=== PATIENT | female | born 1945 | race African-American/Black ===

== ENCOUNTER 2016-05-05 05:25 | Day surgery (SDC) | payer OTHER ==
[~2016-05-05] VITALS: Ht 167.6 cm; Wt 79.4 kg
[~2016-05-05 05:25] MED LIST: CATAPRES0.1 MG PO; HYDROCHLOROTHIA25 MG PO; NORVASC10 MG PO; PROTONIX40 MG PO; TYLENOL REGULA325 MG PO; VENTOLIN HFA18 GM IH; ZYLOPRIM100 MG PO
[2016-05-05 06:38] VITALS: BP 142/80
[2016-05-05 06:40] LABS: HEMATOCRIT 32.1 % (36.0-46.0); MCH 30.1 PG (29.0-34.0); MCHC 31.5 G/DL (30.0-36.0); MCV 95.8 FL (83-99); MEAN PLAT.VOLUME 10.5 uM^3 (9.5-12.4); PLATELET COUNT 224 K/uL (156-360); RBC DIS.WIDTH-CV 12.8 % (11.8-14.6); RBC DIS.WIDTH-SD 44.4 % (39-53); RED BLOOD COUNT 3.35 M/uL (3.80-5.20); WHITE BLOOD COUNT 6.7 K/uL (4.1-10.2)
[2016-05-05 07:06] LABS: ANION GAP 16 MEQ/L (2-14); CHLORIDE 91 MEQ/L (99-109); POTASSIUM 4.6 MEQ/L (3.7-5.4); SAMPLE HEMOLYSIS CHECK 0; SAMPLE ICTERIC CHECK 0; SAMPLE LIPEMIA CHECK 0; SODIUM 140 MEQ/L (136-147)
[2016-05-05 07:12] LABS: GFR ESTIMATE (CALCULATED) 6 mL/min/; GLUCOSE 136 mg/dL (70-99); UREA NITROGEN (BUN) 45 mg/dL (9-23)
[2016-05-05 07:49] LABS: METH RESISTANT S AUREUS PCR NEGATIVE (NEGATIVE)
[2016-05-05 07:50] LABS: PROBE CHECK PASS; SPECIMEN PROCESSING CONTROL PASS
[2016-05-05] MEDS ORDERED: NORCO 5/3251 TABLET PO (09:06)
[2016-05-05 09:33] VITALS: BP 141/71
[2016-05-05 10:30] VITALS: BP 140/81
== END 2016-05-05 10:37 | disposition home or self-care (01) ==
LOC: SDC 05:25
PROVIDERS: Surgery
DX: T82.858A Stenosis of other vascular prosthetic devices, implants and grafts, initial encounter (principal); Y83.2 Surgical operation with anastomosis, bypass or graft as the cause of abnormal reaction of the patient, or of later complication, without mention of misadventure at the time of the procedure; I12.0 Hypertensive chronic kidney disease with stage 5 chronic kidney disease or end stage renal disease; N18.6 End stage renal disease; Z99.2 Dependence on renal dialysis; M19.90 Unspecified osteoarthritis, unspecified site; E66.3 Overweight; Z68.28 Body mass index [BMI] 28.0-28.9, adult
CPT/HCPCS: 80048; 85027; 87641; 93005; C1725; C1769; C1894; J0690; J1644; J2250; J2405; J3010

== ENCOUNTER 2016-12-30 19:49 | Emergency (ER) | payer OTHER ==
[~2016-12-30] VITALS: Ht 167.6 cm; Wt 80.1 kg
[~2016-12-30 19:49] MED LIST changes: +NORCO 5/3251 TABLET PO
[2016-12-30 20:51] LABS: MCH 30.7 PG (29.0-34.0); MCHC 32.9 G/DL (30.0-36.0); MCV 93.4 FL (83-99); MEAN PLAT.VOLUME 10.5 uM^3 (9.5-12.4); PLATELET COUNT 233 K/uL (156-360); RBC DIS.WIDTH-CV 13.2 % (11.8-14.6); RBC DIS.WIDTH-SD 45.1 % (39-53); RED BLOOD COUNT 3.32 M/uL (3.80-5.20); WHITE BLOOD COUNT 6.9 K/uL (4.1-10.2)
[2016-12-30 21:02] LABS: CHLORIDE 93 mEq/L (99-109)
[2016-12-30 21:03] LABS: SODIUM 143 mEq/L (136-147)
[2016-12-30 21:05] LABS: GLUCOSE 135 mg/dL (70-99)
[2016-12-30 21:06] LABS: ANION GAP 17 MEQ/L (2-14)
[2016-12-30 21:07] LABS: TOTAL BILIRUBIN 0.5 mg/dL (0.0-1.0)
[2016-12-30 21:08] LABS: ALKALINE PHOSPHATASE 102 IU/L (3-129); GFR ESTIMATE (CALCULATED) 8 mL/min/
[2016-12-30 21:10] LABS: UREA NITROGEN (BUN) 15 mg/dL (9-23)
[2016-12-30 21:56] LABS: TROP-I INTERPRETATION NEGATIVE; TROPONIN-I < 0.01 ng/mL (0.0-0.30)
[2016-12-30 23:03] LABS: INFLUENZA A VIRAL ANTIGEN NEGATIVE; INFLUENZA B VIRAL ANTIGEN NEGATIVE
[2016-12-31 00:38] VITALS: BP 207/105
== END 2016-12-31 00:39 | disposition left against medical advice (07) ==
LOC: EME 19:49
PROVIDERS: Emergency Medicine
DX: R07.9 Chest pain, unspecified (principal); R06.02 Shortness of breath; M79.601 Pain in right arm; M25.511 Pain in right shoulder; R10.9 Unspecified abdominal pain; R11.10 Vomiting, unspecified; N20.0 Calculus of kidney; I12.0 Hypertensive chronic kidney disease with stage 5 chronic kidney disease or end stage renal disease; N18.6 End stage renal disease; Z90.710 Acquired absence of both cervix and uterus; Z87.891 Personal history of nicotine dependence; Z53.29 Procedure and treatment not carried out because of patient's decision for other reasons
CPT/HCPCS: 71020; 74176; 80053; 81003; 83605; 83880; 84484; 85027; 87040; 87502; 93005; 99281; 99285

== ENCOUNTER 2017-01-05 06:46 | Emergency (ER) | payer OTHER ==
[~2017-01-05] VITALS: Ht 162.6 cm; Wt 80.1 kg
[2017-01-05 07:27] LABS: EOSINOPHIL (%) 4.3 % (0-5); EOSINOPHIL COUNT 0.3 K/uL (0-0.3); HEMATOCRIT 30.1 % (36.0-46.0); IMMATURE GRANULOCYTE (%) 0.3 % (0.0-0.7); INSTRUMENT ABS NEUTROPHIL CT 3.6 K/uL; LYMPHOCYTE COUNT 1.6 K/uL (1.0-2.8); MCH 30.4 PG (29.0-34.0); MCHC 32.2 G/DL (30.0-36.0); MCV 94.4 FL (83-99); MEAN PLAT.VOLUME 10.5 uM^3 (9.5-12.4); MONOCYTE (%) 7.7 % (3-12); MONOCYTE COUNT 0.5 K/uL (0-0.8); NEUTROPHIL (%) 60.2 % (45-76); NEUTROPHIL COUNT 3.6 K/uL (1.8-6.4); PLATELET COUNT 213 K/uL (156-360); RBC DIS.WIDTH-CV 13.5 % (11.8-14.6); RED BLOOD COUNT 3.19 M/uL (3.80-5.20)
[2017-01-05 07:34] LABS: PROTHROMBIN TIME 11.1 SEC (10.2-12.9)
[2017-01-05 07:36] LABS: PTT 26.6 SEC (25-37)
[2017-01-05 07:55] LABS: ANION GAP 13 MEQ/L (2-14); CHLORIDE 94 MEQ/L (99-109); GFR ESTIMATE (CALCULATED) 8 mL/min/; GLUCOSE 111 mg/dL (70-99); POTASSIUM 3.6 MEQ/L (3.7-5.4); SAMPLE HEMOLYSIS CHECK 0; SAMPLE ICTERIC CHECK 0; SAMPLE LIPEMIA CHECK 0; SODIUM 143 MEQ/L (136-147); UREA NITROGEN (BUN) 19 mg/dL (9-23)
[2017-01-05 07:58] LABS: TROP-I INTERPRETATION NEGATIVE; TROPONIN-I < 0.01 ng/mL (0.0-0.30)
[2017-01-05 09:16] VITALS: BP 192/94
== END 2017-01-05 09:17 | disposition home or self-care (01) ==
LOC: EME 06:46
PROVIDERS: Emergency Medicine
DX: J40 Bronchitis, not specified as acute or chronic (principal); I12.0 Hypertensive chronic kidney disease with stage 5 chronic kidney disease or end stage renal disease; N18.6 End stage renal disease; Z99.2 Dependence on renal dialysis; Z87.891 Personal history of nicotine dependence
CPT/HCPCS: 71020; 80048; 84484; 85025; 85610; 85730; 93005; 99281; 99284

== ENCOUNTER 2017-01-11 02:07 | Observation (INO) | payer OTHER ==
[~2017-01-11] VITALS: Ht 167.6 cm; Wt 89.1 kg
[2017-01-11 02:32] LABS: MCH 29.9 PG (29.0-34.0); MCHC 31.7 G/DL (30.0-36.0); MCV 94.3 FL (83-99); MEAN PLAT.VOLUME 9.9 uM^3 (9.5-12.4); PLATELET COUNT 227 K/uL (156-360); RBC DIS.WIDTH-CV 13.8 % (11.8-14.6); RED BLOOD COUNT 3.18 M/uL (3.80-5.20); WHITE BLOOD COUNT 7.3 K/uL (4.1-10.2)
[2017-01-11 02:51] LABS: CHLORIDE 94 mEq/L (99-109); POTASSIUM 3.7 mEq/L (3.7-5.4); SODIUM 143 mEq/L (136-147)
[2017-01-11 02:53] LABS: GLUCOSE 124 mg/dL (70-99)
[2017-01-11 02:54] LABS: ANION GAP 12 MEQ/L (2-14)
[2017-01-11 02:57] LABS: GFR ESTIMATE (CALCULATED) 11 mL/min/
[2017-01-11 02:58] LABS: UREA NITROGEN (BUN) 12 mg/dL (9-23)
[2017-01-11 03:48] LABS: TOTAL BILIRUBIN 0.6 mg/dL (0.0-1.0)
[2017-01-11 03:49] LABS: ALKALINE PHOSPHATASE 115 IU/L (3-129)
[2017-01-11 03:51] LABS: DIRECT BILIRUBIN 0.3 mg/dL (0.0-0.3)
[2017-01-11 03:52] LABS: LIPASE 41 U/L (1.0-51.0)
[2017-01-11 03:58] LABS: TROP-I INTERPRETATION NEGATIVE; TROPONIN-I < 0.01 ng/mL (0.0-0.30)
[2017-01-11] MEDS ORDERED: LISINOPRIL20 MG PO (06:27)
[2017-01-11] MEDS ORDERED: LOSARTAN POTASS50 MG PO (06:28)
[2017-01-11] MEDS ORDERED: APRESOLINE25 MG PO (06:28)
[2017-01-11] MEDS ORDERED: LORATADINE10 M2 PO (10:02)
[2017-01-11] MEDS ORDERED: SENSIPAR30 MG PO ×2 (10:02→11:21)
[2017-01-11] MEDS ORDERED: GABAPENTIN100 MG PO (11:23)
[2017-01-11 12:47] LABS: TROP-I INTERPRETATION NEGATIVE; TROPONIN-I < 0.01 ng/mL (0.0-0.30)
[2017-01-11 13:50] VITALS: BP 200/93
[2017-01-11 15:59] VITALS: BP 187/92
[2017-01-11 18:31] LABS: TROP-I INTERPRETATION NEGATIVE; TROPONIN-I < 0.01 ng/mL (0.0-0.30)
[2017-01-11 19:30] VITALS: BP 187/98
[2017-01-12 00:34] VITALS: BP 158/90
[2017-01-12 03:34] VITALS: BP 145/74
[2017-01-12 05:41] LABS: HEMATOCRIT 26.9 % (36.0-46.0); MCH 30.3 PG (29.0-34.0); MCV 94.7 FL (83-99); MEAN PLAT.VOLUME 10.7 uM^3 (9.5-12.4); PLATELET COUNT 203 K/uL (156-360); RBC DIS.WIDTH-CV 14.1 % (11.8-14.6); RBC DIS.WIDTH-SD 48.9 % (39-53); RED BLOOD COUNT 2.84 M/uL (3.80-5.20); WHITE BLOOD COUNT 5.7 K/uL (4.1-10.2)
[2017-01-12 06:27] LABS: ANION GAP 11 MEQ/L (2-14); CHLORIDE 95 MEQ/L (99-109); GFR ESTIMATE (CALCULATED) 8 mL/min/; GLUCOSE 114 mg/dL (70-99); POTASSIUM 3.9 MEQ/L (3.7-5.4); SAMPLE HEMOLYSIS CHECK 0; SAMPLE ICTERIC CHECK 0; SAMPLE LIPEMIA CHECK 0; SODIUM 142 MEQ/L (136-147); UREA NITROGEN (BUN) 19 mg/dL (9-23)
[2017-01-12 07:52] VITALS: BP 148/82
[2017-01-12] MEDS ORDERED: LISINOPRIL40 MG PO (09:17)
[2017-01-12] MEDS ORDERED: APRESOLINE100 MG PO (09:17)
[2017-01-12] MEDS ORDERED: LABETALOL HCL200 MG PO (09:17)
[2017-01-12 12:24] VITALS: BP 120/78
[2017-01-12 16:41] VITALS: BP 140/82
[2017-01-12 19:15] VITALS: BP 128/74
[2017-01-13 00:27] VITALS: BP 132/74
[2017-01-13 03:51] VITALS: BP 124/72
[2017-01-13 05:45] LABS: EOSINOPHIL (%) 5.6 % (0-5); EOSINOPHIL COUNT 0.3 K/uL (0-0.3); HEMATOCRIT 25.9 % (36.0-46.0); IMMATURE GRANULOCYTE (%) 0.2 % (0.0-0.7); INSTRUMENT ABS NEUTROPHIL CT 2.6 K/uL; LYMPHOCYTE COUNT 1.9 K/uL (1.0-2.8); MCH 30.3 PG (29.0-34.0); MCHC 31.3 G/DL (30.0-36.0); MEAN PLAT.VOLUME 11.1 uM^3 (9.5-12.4); MONOCYTE (%) 10.7 % (3-12); MONOCYTE COUNT 0.6 K/uL (0-0.8); NEUTROPHIL (%) 47.8 % (45-76); NEUTROPHIL COUNT 2.6 K/uL (1.8-6.4); PLATELET COUNT 187 K/uL (156-360); RBC DIS.WIDTH-CV 14.5 % (11.8-14.6); RBC DIS.WIDTH-SD 50.9 % (39-53); RED BLOOD COUNT 2.67 M/uL (3.80-5.20); WHITE BLOOD COUNT 5.4 K/uL (4.1-10.2)
[2017-01-13 06:16] LABS: ANION GAP 10 MEQ/L (2-14); CHLORIDE 99 MEQ/L (99-109); GFR ESTIMATE (CALCULATED) 9 mL/min/; GLUCOSE 95 mg/dL (70-99); POTASSIUM 5.1 MEQ/L (3.7-5.4); SAMPLE HEMOLYSIS CHECK 1; SAMPLE ICTERIC CHECK 0; SAMPLE LIPEMIA CHECK 0; SODIUM 140 MEQ/L (136-147); UREA NITROGEN (BUN) 14 mg/dL (9-23)
[2017-01-13 07:27] VITALS: BP 142/78
[2017-01-13 10:25] LABS: HBSG INDEX 0.19
[2017-01-13 11:24] VITALS: BP 120/65
== END 2017-01-13 18:25 | disposition home or self-care (01) ==
LOC: EME 02:07 → ENRESERV 08:42 → EDOF 08:55 → CANRESERV 09:20 → ENRESERV 09:20 → 4EAST 13:41
PROVIDERS: Internal Medicine; Internal Medicine Nephrology; Student in an Organized Health Care Education/Training Program
PROC: 5A1D70Z Performance of Urinary Filtration, Intermittent, Less than 6 Hours Per Day (ICD-10-PCS; principal; 2017-01-12)
DX: I12.0 Hypertensive chronic kidney disease with stage 5 chronic kidney disease or end stage renal disease (principal); N18.6 End stage renal disease; I16.0 Hypertensive urgency; R07.9 Chest pain, unspecified; R06.02 Shortness of breath; D63.1 Anemia in chronic kidney disease; Z99.2 Dependence on renal dialysis; N25.81 Secondary hyperparathyroidism of renal origin; I51.7 Cardiomegaly; M19.90 Unspecified osteoarthritis, unspecified site; M10.9 Gout, unspecified; F29 Unspecified psychosis not due to a substance or known physiological condition; E87.5 Hyperkalemia; Z88.5 Allergy status to narcotic agent
CPT/HCPCS: 70450; 71010; 80048; 80069; 80076; 81003; 82140; 83690; 84484; 85025; 85027; 87340; 93005; 99281; 99285; G0257; G0378; J0360; J1644; J2405

== ENCOUNTER 2017-01-14 17:41 | Emergency (ER) | payer OTHER ==
[~2017-01-14] VITALS: Ht 165.1 cm; Wt 78.9 kg
[~2017-01-14 17:41] MED LIST changes: +APRESOLINE100 MG PO; +APRESOLINE25 MG PO; +GABAPENTIN100 MG PO; +LABETALOL HCL200 MG PO; +LISINOPRIL20 MG PO; +LISINOPRIL40 MG PO; +LORATADINE10 M2 PO; +LOSARTAN POTASS50 MG PO; +SENSIPAR30 MG PO
[2017-01-14 18:04] LABS: HEMATOCRIT 25.2 % (36.0-46.0); MCH 30.7 PG (29.0-34.0); MCHC 32.5 G/DL (30.0-36.0); MCV 94.4 FL (83-99); MEAN PLAT.VOLUME 10.5 uM^3 (9.5-12.4); PLATELET COUNT 195 K/uL (156-360); RBC DIS.WIDTH-CV 14.2 % (11.8-14.6); RBC DIS.WIDTH-SD 48.9 % (39-53); RED BLOOD COUNT 2.67 M/uL (3.80-5.20); WHITE BLOOD COUNT 5.5 K/uL (4.1-10.2)
[2017-01-14 18:12] LABS: CHLORIDE 98 mEq/L (99-109); POTASSIUM 4.2 mEq/L (3.7-5.4); SODIUM 141 mEq/L (136-147)
[2017-01-14 18:15] LABS: GLUCOSE 109 mg/dL (70-99)
[2017-01-14 18:16] LABS: ANION GAP 14 MEQ/L (2-14)
[2017-01-14 18:17] LABS: TOTAL BILIRUBIN 0.5 mg/dL (0.0-1.0)
[2017-01-14 18:18] LABS: ALKALINE PHOSPHATASE 91 IU/L (3-129); GFR ESTIMATE (CALCULATED) 6 mL/min/
[2017-01-14 18:22] LABS: LIPASE 31 U/L (1.0-51.0)
[2017-01-14 18:32] LABS: UREA NITROGEN (BUN) 24 mg/dL (9-23)
[2017-01-14 19:37] VITALS: BP 153/66
== END 2017-01-14 19:38 | disposition home or self-care (01) ==
LOC: EME 17:41
PROVIDERS: Nurse Practitioner Family
DX: R25.1 Tremor, unspecified (principal); R19.7 Diarrhea, unspecified; I12.9 Hypertensive chronic kidney disease with stage 1 through stage 4 chronic kidney disease, or unspecified chronic kidney disease; N18.9 Chronic kidney disease, unspecified; E11.22 Type 2 diabetes mellitus with diabetic chronic kidney disease; Z99.2 Dependence on renal dialysis; K21.9 Gastro-esophageal reflux disease without esophagitis; F32.9 Major depressive disorder, single episode, unspecified; Z87.891 Personal history of nicotine dependence
CPT/HCPCS: 71020; 80053; 81003; 83690; 85027; 99281; 99284